=== PATIENT | male | born 1975 | race Caucasian/White ===

== ENCOUNTER 2021-07-17 10:28 | Observation (INO) | payer BC ==
--- NOTE | 2021-07-17 11:31 | ED ---
General Adult HPI - General Chief complaint: Chest Pain Stated complaint: palpitations Time Seen by Provider: 07/17/21 10:51 Source: patient Mode of arrival: ambulatory Limitations: no limitations - History of Present Illness Initial comments: Dictation was produced using [employer] dictation software. please excuse any grammatical, word or spelling errors. Chief Complaint: 46-year-old male with no medical history presents to the emerge ncy department for palpitations History of Present Illness: Patient's 46-year-old male who presents emergency department for palpitations. Patient states that yesterday he had perhaps some tightness and palpitations while watching TV. He started to feel a little diaphoretic. Patient dry heaved 3 times with no vomiting. Feels better today however felt like symptoms return. States he gets more palpitations. Feels that his heart is racing. Patient denies any shortness of breath. Denies any chest pain currently. Has a mild bifrontal headache. Denies any fevers. Patient's son vaccinated for COVID-19. She denies tinnitus to his right ear. The ROS documented in this emergency department record has been reviewed and confirmed by me. Those systems with pertinent positive or negative responses have been documented in the HPI. All other systems are other negative and/or noncontributory. PHYSICAL EXAM: General Impression: Alert and oriented x3, not in acute distress HEENT: Normocephalic atraumatic, extra-ocular movements intact, pupils equal and reactive to light bilaterally, mucous membranes moist. Cardiovascular: Heart regular rate and rhythm, normal TMs bilaterally Chest: Able to complete full sentences, no retractions, no tachypnea Abdomen: abdomen soft, non-tender, non-distended, no organomegaly Musculoskeletal: Pulses present and equal in all extremities, no peripheral edema Motor: no focal deficits noted Neurological: CN II-XII grossly intact, no focal motor or sensory deficits noted Skin: Intact with no visualized rashes Psych: Normal affect and mood ED course: 46-year-old male presents emergency department for palpitations. Last night it was is associated with some tightness, diaphoresis and nausea.. he denies any chest pain symptoms currently. Vital signs upon arrival shows heart rate of 110, worse vital signs within acceptable limits. Laboratory evaluation obtained. CBC, coag panel is unremarkable. Metabolic panel is negative. D-dimer is negative. COVID-19 test is negative. Patient reevaluated at the bedside at 12:50 PM on be stable medical condition. Given patient's description of his event last night there is concern for acute varghese nary syndrome. Patient be admitted to the hospital for serial troponins, cardiology consultation and cardiac monitoring. Patient given aspirin. Patient is agreeable with disposition. EKG interpretation: Ventricular rate 103, sinus tachycardia, MD interval 150, QRS 80, QTc 445. No MD prolongation, no QTC prolongation, no ST or T-wave changes noted. No old EKG for comparison Overall, this EKG is unremarkable - Related Data Home Medications Medication Instructions Recorded Confirmed No Known Home Medications 07/17/21 07/17/21 Allergies Allergy/AdvReac Type Severity Reaction Status Date / Time No Known Allergies Allergy Verified 07/17/21 12:16 Review of Systems ROS Statement: Those systems with pertinent positive or pertinent negative responses have been documented in the HPI. ROS Other: All systems not noted in ROS Statement are negative. Past Medical History Past Medical History: No Reported History History of Any Multi-Drug Resistant Organisms: None Reported Past Surgical History: No Surgical Hx Reported Past Psychological History: No Psychological Hx Reported Smoking Status: Current every day smoker Past Alcohol Use History: Occasional Past Drug Use History: None Reported General Exam Limitations: no limitations Course Vital Signs 07/17/21 07/17/21 10:29 11:35 Temperature 98.7 F Pulse Rate 110 H 101 H Respiratory 18 20 Rate Blood Pressure 140/86 138/87 O2 Sat by Pulse 98 96 Oximetry Medical Decision Making - Lab Data Result diagrams: 07/17/21 11:41 07/17/21 11:41 Lab Results 07/17/21 07/17/21 07/17/21 Range/Units 11:41 11:41 11:41 WBC 6.4 (3.8-10.6) k/uL RBC 5.09 (4.30-5.90) m/uL Hgb 16.0 (13.0-17.5) gm/dL Hct 47.1 (39.0-53.0) % MCV 92.4 (80.0-100.0) fL MCH 31.3 (25.0-35.0) pg MCHC 33.9 (31.0-37.0) g/dL RDW 13.5 (11.5-15.5) % Plt Count 191 (150-450) k/uL MPV 7.9 Neutrophils % 74 % Lymphocytes % 8 % Monocytes % 14 % Eosinophils % 2 % Basophils % 1 % Neutrophils # 4.7 (1.3-7.7) k/uL Lymphocytes # 0.5 L (1.0-4.8) k/uL Monocytes # 0.9 (0-1.0) k/uL Eosinophils # 0.1 (0-0.7) k/uL Basophils # 0.0 (0-0.2) k/uL PT 10.1 (9.0-12.0) sec INR 0.9 (<1.2) APTT 24.6 (22.0-30.0) sec D-Dimer 0.37 (<0.60) mg/L FEU Sodium (137-145) mmol/L Potassium (3.5-5.1) mmol/L Chloride (98-107) mmol/L Carbon Dioxide (22-30) mmol/L Anion Gap mmol/L BUN (9-20) mg/dL Creatinine (0.66-1.25) mg/dL Est GFR (CKD-EPI)AfAm (>60 ml/min/1.73 sqM) Est GFR (CKD-EPI)NonAf (>60 ml/min/1.73 sqM) Glucose (74-99) mg/dL Calcium (8.4-10.2) mg/dL Magnesium (1.6-2.3) mg/dL Troponin I (0.000-0.034) ng/mL Coronavirus (PCR) Not Detected (Not Detectd) 07/17/21 07/17/21 Range/Units 11:41 11:41 WBC (3.8-10.6) k/uL RBC (4.30-5.90) m/uL Hgb (13.0-17.5) gm/dL Hct (39.0-53.0) % MCV (80.0-100.0) fL MCH (25.0-35.0) pg MCHC (31.0-37.0) g/dL RDW (11.5-15.5) % Plt Count (150-450) k/uL MPV Neutrophils % % Lymphocytes % % Monocytes % % Eosinophils % % Basophils % % Neutrophils # (1.3-7.7) k/uL Lymphocytes # (1.0-4.8) k/uL Monocytes # (0-1.0) k/uL Eosinophils # (0-0.7) k/uL Basophils # (0-0.2) k/uL PT (9.0-12.0) sec INR (<1.2) APTT (22.0-30.0) sec D-Dimer (<0.60) mg/L FEU Sodium 139 (137-145) mmol/L Potassium 4.5 (3.5-5.1) mmol/L Chloride 109 H (98-107) mmol/L Carbon Dioxide 20 L (22-30) mmol/L Anion Gap 10 mmol/L BUN 18 (9-20) mg/dL Creatinine 0.93 (0.66-1.25) mg/dL Est GFR (CKD-EPI)AfAm >90 (>60 ml/min/1.73 sqM) Est GFR (CKD-EPI)NonAf >90 (>60 ml/min/1.73 sqM) Glucose 106 H (74-99) mg/dL Calcium 9.7 (8.4-10.2) mg/dL Magnesium 2.1 (1.6-2.3) mg/dL Troponin I <0.012 (0.000-0.034) ng/mL Coronavirus (PCR) (Not Detectd) Disposition Clinical Impression: Chest pain Disposition: ADMITTED IP TO THIS HOSP Condition: Fair Referrals: Joan Kern MD [Primary Care Provider] - 1-2 days
--- NOTE | 2021-07-17 12:06 | XR ---
EXAMINATION TYPE: XR chest 1V portable DATE OF EXAM: 07/17/2021 COMPARISON: NONE HISTORY: Heart palpitations TECHNIQUE: Single frontal view of the chest is obtained. FINDINGS: There is no focal air space opacity, pleural effusion, or pneumothorax seen. The cardiac silhouette size is within normal limits. The osseous structures are intact. Heart is enlarged and t here is hyperinflation suggestive of COPD. Linear density right upper lobe likely related to superimp osed structures. IMPRESSION: 1. Cardiomegaly correlate for COPD.
[2021-07-17 12:19] LABS: INR 0.9 (<1.2); Partial Thromboplastin Time 24.6 sec (22.0-30.0); Prothrombin Time 10.1 sec (9.0-12.0)
[2021-07-17 12:20] LABS: African American GFR (CKD) >90 (>60 ml/min/1.73 sqM); Anion Gap 10 mmol/L; Blood Urea Nitrogen 18 mg/dL (9-20); Calcium 9.7 mg/dL (8.4-10.2); Carbon Dioxide 20 mmol/L (22-30); Chloride 109 mmol/L (98-107); Glucose 106 mg/dL (74-99); Magnesium 2.1 mg/dL (1.6-2.3); Non-African American GFR(CKD) >90 (>60 ml/min/1.73 sqM); Potassium 4.5 mmol/L (3.5-5.1); Sodium 139 mmol/L (137-145)
[2021-07-17 12:25] LABS: Basophils % (A) 1 %; Eosinophils # (A) 0.1 k/uL (0-0.7); Eosinophils % (A) 2 %; HCT 47.1 % (39.0-53.0); Lymphocytes # (A) 0.5 k/uL (1.0-4.8); Lymphocytes % (A) 8 %; MCH 31.3 pg (25.0-35.0); MCHC 33.9 g/dL (31.0-37.0); MCV 92.4 fL (80.0-100.0); Mean Platelet Volume 7.9; Monocytes # (A) 0.9 k/uL (0-1.0); Monocytes % (A) 14 %; Neutrophils # (A) 4.7 k/uL (1.3-7.7); Neutrophils % (A) 74 %; Platelet Count 191 k/uL (150-450); RBC 5.09 m/uL (4.30-5.90); RDW 13.5 % (11.5-15.5); WBC 6.4 k/uL (3.8-10.6)
[2021-07-17] MEDS ORDERED: NITROGLYCERIN SL TABS 0.4 MG TAB SUBLINGUAL PRN (12:51)
[2021-07-17] MEDS ORDERED: ASPIRIN 81 MG PO STA (12:51)
[2021-07-17] MEDS ORDERED: METOPROLOL TARTRATE 25 MG TAB PO STA (17:34)
[2021-07-17] MEDS ORDERED: TEMAZEPAM 15 MG CAP PO PRN (21:17)
[2021-07-17] MEDS ORDERED: ACETAMINOPHEN TAB 325 MG TAB PO PRN (21:17)
[2021-07-17] MEDS ORDERED: LACTULOSE 20 GM/30 ML CUP PO PRN (21:17)
[2021-07-17] MEDS ORDERED: CALCIUM CARBONATE 500 MG CHEWABLE PO PRN (21:17)
[2021-07-17] MEDS ORDERED: ONDANSETRON 4 MG/2 ML VIAL IVP PRN (21:17)
[2021-07-17] MEDS ORDERED: NALOXONE 0.4 MG/ML 1 ML VIAL IV PRN (21:17)
[2021-07-17] MEDS ORDERED: ALPRAZolam 0.25 MG TAB PO PRN (21:17)
[2021-07-17] MEDS: METOPROLOL TARTRATE 25 MG TAB PO SCH (21:18)
--- NOTE | 2021-07-17 21:19 | P.HPIM ---
History of Present Illness H&P Date: 07/17/21 Chief Complaint: Heart racing This is a pleasant 46-year-old patient of Dr. Joanne Kern. Unremarkable pass medical history. Yesterday evening he came home after work was eating a pizza. Suddenly felt his heart racing. It has happened before but short lived. This time it persisted. protocol into a heavy sweat. Guard drenched. Also developed chest tightness. He took 2 baby aspirin. His girlfriend was present. Finally went to sleep. Woke up this morning. He felt as his chest was a bit sore and had was pounding a bit. Decided to go to work. At work again he developed his heart racing palpitations some shortness of breath tightness. Decided to drive down here to the hospital. Initial troponin was negative. Admitted with unstable angina. Review of systems: GEN.: Tired EYES: None HEENT: None NECK: None RESPIRATORY: As above CARDIOVASCULAR: As above GASTROINTESTINAL: None GENITOURINARY: None MUSCULOSKELETAL: None LYMPHATICS: None HEMATOLOGICAL: None PSYCHIATRY: None NEUROLOGICAL: None Past medical history: Unremarkable Social history: . Lives alone. Alcohol rarely. Smokes a pack a day for last 28 years. Works in [employer]. Family history: Both grandfathers had coronary disease Physical examination: VITAL SIGNS: 98.7, 110, 18, 140/86, 98% room air GENERAL: BMI 32.5, laying in bed, awake, anxious. EYES: Pupils equal. Conjunctiva normal. HEENT: External appearance of nose and ears normal, oral cavity grossly normal. NECK: JVD not raised; masses not palpable. HEART: First and second heart sounds are normal; no edema. LUNGS: Respiratory rate normal; slightly decreased breath sounds. ABDOMEN: Soft, nontender, liver spleen not palpable, no masses palpable. PSYCH: Alert and oriented x3; mood and affect anxiousl. MUSCULOSKELETAL:No Clubbing/cyanosis;muscles-grossly intact NEUROLOGICAL: Cranial nerves grossly intact; no facial asymmetry, power and sensation grossly intact. LYMPHATICS: No lymph nodes palpable in the axilla and neck INVESTIGATIONS, reviewed in the clinical context: White count 6.4 hemoglobin 16 platelets 191 sodium 139 potassium 4.5 BUN 18 creatinine 0.93 Troponin I 3: Negative Coronavirus [PCR]: Not detected EKG tracing personally reviewed by me-no sinus rhythm. Rate 103 Chest x-ray film personally reviewed by me-some hyperinflation. Cardiomegaly. Assessment and plan: -Unstable angina: Patient presented episode of heart racing chest tightness with heavy perspiration. One episode last night and this morning. Increased at work. Respiratory as include smoking, positive family history. Troponin is negative. Patient will need a stress test. Telemetry. Cardiology consultation. Aspirin. -Early emphysema. Asymptomatic Follow clinically -Chronic nicotine dependence, cigarette smoker Nicotine patch Aspirin. Telemetry. Lipid profile. Nicotine patch. Cardiology consultation. Subcu Lovenox. Discussed with patient. 2-D echocardiogram Past Medical History Past Medical History: Eye Disorder, Hearing Disorder / Deafness Additional Past Medical History / Comment(s): Scoliosis upper back, bilateral tinnitis, L eye stye. History of Any Multi-Drug Resistant Organisms: None Reported Past Surgical History: Back Surgery, Orthopedic Surgery Additional Past Surgical History / Comment(s): R knee arthroscopy for meniscus, lower back laminectomy as a child. Past Anesthesia/Blood Transfusion Reactions: No Reported Reaction Smoking Status: Current every day smoker - Past Family History Father History Unknown: Yes Brother(s) Family Medical History: Hypertension Medications and Allergies Home Medications Medication Instructions Recorded Confirmed Type No Known Home Medications 07/17/21 07/17/21 History Allergies Allergy/AdvReac Type Severity Reaction Status Date / Time No Known Allergies Allergy Verified 07/17/21 12:16 Physical Exam Vitals: Vital Signs Temp Pulse Resp BP Pulse Ox 07/17/21 16:54 97 20 157/111 97 07/17/21 11:35 101 H 20 138/87 96 07/17/21 10:29 98.7 F 110 H 18 140/86 98 Intake and Output 07/17/21 07/17/21 07/17/21 06:59 14:59 22:59 Other: Weight 108.862 kg 108.862 kg Results CBC & Chem 7: 07/17/21 11:41 07/17/21 11:41 Labs: Abnormal Lab Results - Last 24 Hours (Table) 07/17/21 07/17/21 Range/Units 11:41 11:41 Lymphocytes # 0.5 L (1.0-4.8) k/uL Chloride 109 H (98-107) mmol/L Carbon Dioxide 20 L (22-30) mmol/L Glucose 106 H (74-99) mg/dL Thrombosis Risk Factor Assmnt - Choose All That Apply Any of the Below Risk Factors Present?: Yes Each Factor Represents 1 point: Age 41-60 years, Obesity (BMI >25) Other Risk Factors: No Other congenital or acquired thrombophilia - If yes, enter type in comment: No Thrombosis Risk Factor Assessment Total Risk Factor Score: 2 Thrombosis Risk Factor Assessment Level: Low Risk
[2021-07-17] MEDS: NICOTINE 21MG/24HR PATCH TRANSDERM SCH (21:27)
[2021-07-18 07:53] VITALS: BP 128/82; PULSE 77; RESP 16; TEMP 98.3
--- NOTE | 2021-07-18 08:00 | ECHOF ---
Referral Reason:chest pain MEASUREMENTS -------- HEIGHT: 182.9 cm WEIGHT: 108.9 kg BP: 138/87 RVIDd: 3.1 cm (< 3.3) IVSd: 1.2 cm (0.6 - 1.1) LVIDd: 4.6 cm (3.9 - 5.3) LVPWd: 1.1 cm (0.6 - 1.1) IVSs: 1.7 cm LVIDs: 2.9 cm LVPWs: 1.6 cm LAESV Index (A-L): 18.30 ml/m Ao Diam: 3.6 cm (2.0 - 3.7) AV Cusp: 2.0 cm (1.5 - 2.6) LA Diam: 3.6 cm (2.7 - 3.8) MV EXCURSION: 21.333 mm (> 18.000) MV EF SLOPE: 137 mm/s (70 - 150) EPSS: 0.5 cm MV E Agusto: 0.86 m/s MV DecT: 164 ms MV A Agusto: 0.69 m/s MV E/A Ratio: 1.24 FINDINGS -------- Sinus rhythm. This was a technically adequate study. The left ventricular size is normal. There is mild concentric left ventricular hypertrophy. Overa ll left ventricular systolic function is normal with, an EF between 55 - 60 %. The diastolic fillin g pattern is normal for the age of the patient {E/E'}. The right ventricle is normal in size. Normal LA size by volume 22+/-6 ml/m2. The right atrial size is normal. Interatrial and interventricular septum intact. There is no evidence of aortic regurgitation. There is no evidence of aortic stenosis. No mitral regurgitation. Trace tricuspid regurgitation present. Unable to estimate RVSP due to inadequate TR jet spectral do ppler profile. There is no pulmonic regurgitation present. The aortic root size is normal. IVC Not well visulized. Echo free space represents a pericardial fat pad. There is no pericardial effusion. CONCLUSIONS -------- 1. The left ventricular size is normal. 2. There is mild concentric left ventricular hypertrophy. 3. Overall left ventricular systolic function is normal with, an EF between 55 - 60 %. 4. The diastolic filling pattern is normal for the age of the patient {E/E'} 5. Trace tricuspid regurgitation present. 6. Unable to estimate RVSP due to inadequate TR jet spectral doppler profile. DOCUMENTATION SUPERVISOR: Ping Shepherd RDCS
[2021-07-18] MEDS ORDERED: SODIUM CHLORIDE 0.9% 1,000 ML IV SCH (08:15)
[2021-07-18] MEDS: NICOTINE 21MG/24HR PATCH TRANSDERM SCH (08:41)
[2021-07-18] MEDS: METOPROLOL TARTRATE 25 MG TAB PO SCH (08:41)
[2021-07-18] MEDS ORDERED: ASPIRIN 325 MG TAB PO SCH (09:00)
[2021-07-18] MEDS ORDERED: ASPIRIN 81 MG PO SCH (09:00)
--- NOTE | 2021-07-18 09:39 | P.CRDCN ---
History of Present Illness Consult date: 07/17/21 History of present illness: HISTORY OF PRESENT ILLNESS: This is a 46-year-old male with a past medical history significant for nicotine dependence. Patient does not follow with a test architect. We have been asked to see the patient in consultation for chest pain. Patient examined at the bedside. Patient states on Friday night he began having palpitations after eating dinner. He then reports having chest pain and feeling diaphoretic. Patient states he went to lay down and elevated his legs and drink some water and his symptoms resolved. He states yesterday morning he went to work and his symptoms began again so he came to the emergency room for further evaluation. The patient also reports having some dry heaves which have resolved. He at the time of my examination, he denies any chest pain or pressure. He denies shortness of breath. He denies any palpitations. The patient reports he had a stress test in January 2021 at [facility] and states it was negative. EKG reveals sinus tachycardia with a heart rate of 103. No signs of acute ischemia. Chest xray cardiomegaly. Correlate for COPD. Laboratory data: WBC 6.4. Hemoglobin 16.0. Platelet count 191. D-dimer 0.37. Sodium 139. Potassium 4.5. BUN 18. Creatinine 0.93. Magnesium 2.1. Troponin negative 3 Current home cardiac medications include none Echocardiogram completed revealing ejection fraction 55-60% with trace tricuspid regurgitation REVIEW OF SYSTEMS: At the time of my exam: CONSTITUTIONAL: Denies fever or chills. HEENT: Denies blurred vision, vision changes, or eye pain. Denies hemoptysis CARDIOVASCULAR: Denies chest pain. Denies orthopnea. Denies PND. Denies palpitations RESPIRATORY: Denies shortness of breath. GASTROINTESTINAL: Denies abdominal pain. Denies nausea or vomiting. HEMATOLOGIC: Denies bleeding disorders. GENITOURINARY: Denies any blood in urine. SKIN: Denies pruitis. Denies rash. PHYSICAL EXAM: VITAL SIGNS: Reviewed. GENERAL: Well-developed in no acute distress. HEENT: Head is normocephalic. Pupils are equal, round. Sclerae anicteric. Mucous membranes of the mouth are moist. Neck supple. No JVD or thyromegaly LUNGS: Respirations even and unlabored. Lungs essentially clear to auscultation bilaterally. HEART: Regular rate and rhythm. S1 and S2 heard. ABDOMEN: Soft. Nondistended. Nontender. EXTREMITIES: Normal range of motion. No clubbing or cyanosis. Peripheral pulses intact. No lower extremity edema NEUROLOGIC: Awake and alert. Oriented x 3. ASSESSMENT: Chest pain, atypical, troponin negative 3 Palpitations Nicotine dependence PLAN: An acute coronary event has been ruled out Patient has been started on metoprolol 25 mg twice a day per internal medicine. May continue this from a cardiac standpoint 2-D echo obtained and reviewed Patient may be discharged home today from a cardiac standpoint Nurse practitioner note has been reviewed by physician. Signing provider agrees with the documented findings, assessment, and plan of care. Past Medical History Past Medical History: No Reported History History of Any Multi-Drug Resistant Organisms: None Reported Past Surgical History: No Surgical Hx Reported Past Psychological History: No Psychological Hx Reported Smoking Status: Current every day smoker Past Alcohol Use History: Occasional Past Drug Use History: None Reported - Past Family History Father History Unknown: Yes Brother(s) Family Medical History: Hypertension Medications and Allergies Home Medications Medication Instructions Recorded Confirmed Type No Known Home Medications 07/17/21 07/17/21 History Allergies Allergy/AdvReac Type Severity Reaction Status Date / Time No Known Allergies Allergy Verified 07/17/21 12:16 Physical Exam Vitals: Vital Signs Temp Pulse Resp BP Pulse Ox 07/17/21 11:35 101 H 20 138/87 96 07/17/21 10:29 98.7 F 110 H 18 140/86 98 Intake and Output 07/16/21 07/17/21 07/17/21 22:59 06:59 14:59 Other: Weight 108.862 kg Results 07/17/21 11:41 07/17/21 11:41 Cardiac Enzymes 07/17/21 Range/Units 11:41 Troponin I <0.012 (0.000-0.034) ng/mL Coagulation 07/17/21 Range/Units 11:41 PT 10.1 (9.0-12.0) sec APTT 24.6 (22.0-30.0) sec CBC 07/17/21 Range/Units 11:41 WBC 6.4 (3.8-10.6) k/uL RBC 5.09 (4.30-5.90) m/uL Hgb 16.0 (13.0-17.5) gm/dL Hct 47.1 (39.0-53.0) % Plt Count 191 (150-450) k/uL Comprehensive Metabolic Panel 07/17/21 Range/Units 11:41 Sodium 139 (137-145) mmol/L Potassium 4.5 (3.5-5.1) mmol/L Chloride 109 H (98-107) mmol/L Carbon Dioxide 20 L (22-30) mmol/L BUN 18 (9-20) mg/dL Creatinine 0.93 (0.66-1.25) mg/dL Glucose 106 H (74-99) mg/dL Calcium 9.7 (8.4-10.2) mg/dL Current Medications Generic Name Dose Route Start Last Admin Trade Name Freq PRN Reason Stop Dose Admin Aspirin 81 mg 07/18/21 09:00 Aspirin 325 Mg Tab PO DAILY DISHA Nitroglycerin 0.4 mg 07/17/21 12:51 Nitroglycerin Sl Tabs 0.4 Mg Tab SUBLINGUAL Q5M PRN Chest Pain Intake and Output 07/16/21 07/17/21 07/17/21 22:59 06:59 14:59 Other: Weight 108.862 kg Patient Weight 07/18/21 06:59 Weight 108.862 kg 07/17/21 11:41 07/17/21 11:41
[2021-07-18 11:36] LABS: Chol/HDL Ratio 7.11 Ratio; LDL Cholesterol,Calculated 99.2 mg/dL (0.0-131.0)
--- NOTE | 2021-07-18 21:57 | P.DS ---
Providers Date of admission: 07/17/21 12:51 Expected date of discharge: 07/18/21 Attending physician: Contreras Meredith Consults: 07/17/21 12:51 Consult Physician Urgent Consulting Provider: Ladarius Sandoval Consult Reason/Comments: chest pain Do you want consulting provider notified?: Yes Primary care physician: Joan Kern [facility] Course: Chief Complaint: Heart racing This is a pleasant 46-year-old patient of Dr. Joanne Kern. Unremarkable pass medical history. Yesterday evening he came home after work was eating a pizza. Suddenly felt his heart racing. It has happened before but short lived. This time it persisted. protocol into a heavy sweat. Guard drenched. Also developed chest tightness. He took 2 baby aspirin. His girlfriend was present. Finally went to sleep. Woke up this morning. He felt as his chest was a bit sore and had was pounding a bit. Decided to go to work. At work again he developed his heart racing palpitations some shortness of breath tightness. Decided to drive down here to the hospital. Initial troponin was negative. Admitted with unstable angina. July 18:patient feeling well this morning slept well. Seen by Dr. JESUS Sandoval from cardiology. Patient be discharged to follow-up with him in the office. Given his young age for blood pressure we'll add lisinopril hydrochlorothiazide and DC metoprolol. Questions answered. Counseled about smoking and weight loss Discussion and discharge planning more than 35 minutes Consultation: Dr. JESUS Sandoval from cardiology Past medical history: Unremarkable Social history: . Lives alone. Alcohol rarely. Smokes a pack a day for last 28 years. Works in [employer]. Family history: Both grandfathers had coronary disease Physical examination: VITAL SIGNS: 98.3, 77, 16, 128/82, 98% room air GENERAL:, laying in bed, awake, comfortable EYES: Pupils equal. Conjunctiva normal. HEENT: External appearance of nose and ears normal, oral cavity grossly normal. NECK: JVD not raised; masses not palpable. HEART: First and second heart sounds are normal; no edema. LUNGS: Respiratory rate normal; slightly decreased breath sounds. ABDOMEN: Soft, nontender, liver spleen not palpable, no masses palpable. PSYCH: Alert and oriented x3; mood and affect anxiousl. MUSCULOSKELETAL:No Clubbing/cyanosis;muscles-grossly intact INVESTIGATIONS, reviewed in the clinical context: 2-D echocardiogram: EF 55-60% LDL 99 triglycerides 170 White count 6.4 hemoglobin 16 platelets 191 sodium 139 potassium 4.5 BUN 18 creatinine 0.93 Troponin I 3: Negative Coronavirus [PCR]: Not detected EKG tracing personally reviewed by me-no sinus rhythm. Rate 103 Chest x-ray film personally reviewed by me-some hyperinflation. Cardiomegaly. Assessment and plan: -Anterior chest wall pain. Risk factors as include smoking, positive family history. Troponin is negative. Seen by cardiology. Outpatient follow-up -Early emphysema. Asymptomatic, in a smoker Follow clinically -Essential hypertension Lisinopril hydrochlorothiazide 20/12.5 one tablet daily at bedtime -Chronic nicotine dependence, cigarette smoker Nicotine patch Disposition: Home Patient Condition at Discharge: Good Plan - Discharge Summary Discharge Rx Participant: No New Discharge Prescriptions: New Aspirin 81 mg PO DAILY tab Nicotine 21Mg/24Hr Patch [Habitrol] 1 patch TRANSDERM DAILY #14 patch Lisinopril-Hctz 20-12.5 mg [Zestoretic 20-12.5] 1 tab PO HS #30 tab Discharge Medication List Aspirin 81 mg PO DAILY tab 07/18/21 [Rx] Lisinopril-Hctz 20-12.5 mg [Zestoretic 20-12.5] 1 tab PO HS #30 tab 07/18/21 [Rx] Nicotine 21Mg/24Hr Patch [Habitrol] 1 patch TRANSDERM DAILY #14 patch 07/18/21 [Rx] Follow up Appointment(s)/Referral(s): Ladarius Sandoval MD [STAFF PHYSICIAN] - 1 Week Joan Kern MD [Primary Care Provider] - 1-2 days Patient Instructions/Handouts: Chest Pain (DC) Discharge/Stand Alone Forms: Work/School Release / Restrict Discharge Disposition: HOME SELF-CARE
== END 2021-07-18 12:13 | disposition home or self-care (01) ==
LOC: EC 10:28 → 6NMEDSUR 12:51
PROVIDERS: ADMIT Hospitalist; ATTEND Hospitalist
DX: R07.89 Other chest pain (principal); R00.2 Palpitations; R00.0 Tachycardia, unspecified; R11.0 Nausea; F17.210 Nicotine dependence, cigarettes, uncomplicated; J43.9 Emphysema, unspecified; I11.9 Hypertensive heart disease without heart failure; M41.9 Scoliosis, unspecified; Z20.822 Contact with and (suspected) exposure to COVID-19; R51.9 Headache, unspecified; R61 Generalized hyperhidrosis; H91.90 Unspecified hearing loss, unspecified ear; E66.9 Obesity, unspecified; Z68.32 Body mass index [BMI] 32.0-32.9, adult; Z71.6 Tobacco abuse counseling; Z71.3 Dietary counseling and surveillance; Z82.49 Family history of ischemic heart disease and other diseases of the circulatory system
CPT/HCPCS: 99285; 36415; 93005; 93306; 85379; 80061; 80048; 83735; 84484; 85025; 85610; 85730; 87635; 71045; G0378 ×2; S4990 ×2